=== PATIENT | male | born 1980 | race Caucasian/White ===

== ENCOUNTER 2017-12-26 09:48 | Emergency (ER) | payer SELFPAY ==
[2017-12-26] MEDS ORDERED: POVIDONE IODINE 10 % 15 ML UD TOP ONE (09:54)
[2017-12-26] MEDS ORDERED: LIDOCAINE 1% W/ EPINEPHRINE 20 ML VIAL INJ ONE (09:59)
[2017-12-26] MEDS ORDERED: LIDOCAINE 1% 10 ML VIAL INJ ONE (09:59)
--- NOTE | 2017-12-26 10:35 | ED.PDOC ---
History of Present Illness - General Chief Complaint: Trauma Stated Complaint: Degloving of fingers to R hand Time Seen by Provider: 12/26/17 10:13 Source: patient Exam Limitations: no limitations - History of Present Illness Initial Comments: Mauro Patricia 37 y/o male stated roping a horse and got tight both right 3rd-4th finger sustained skindegloving injury as well as distal avulsion injury 3rd digit right. Occurred: just prior to arrival Pain - Upper Extremity: moderate: Hand, right Method of Injury: other - see hpi Improving Factors: rest Worsening Factors: movement Associated Symptoms: PAIN INJURED FINGERS Allergies/Adverse Reactions: Allergies NO KNOWN ALLERGY Allergy (Verified 12/26/17 09:57) Home Medications: Ambulatory Orders Acetamin W/Cod #3 Tab [Tylenol w/CODEINE #3] 1 ea PO Q4HR PRN #14 tab 12/26/17 Cephalexin 1,000 mg PO BID #30 cap 12/26/17 Past Medical History (General) - Patient Medical History Hx Stroke: No Hx Congestive Heart Failure: No Hx Diabetes: No Surgical History: other - Vaccination History Hx Tetanus, Diphtheria Vaccination: - 12/26/17 Hx Influenza Vaccination: No Hx Pneumococcal Vaccination: No - Social History Hx Tobacco Use: No Hx Chewing Tobacco Use: Yes Hx Physical Abuse: No Hx Emotional Abuse: No Family Medical History - Family History Father Living Status: Still Living Hx Family Hypertension: Yes Physical Exam - Physical Exam General Appearance: Alert, Comfortable, No apparent distress Eyes, Ears, Nose, Throat Exam: normal ENT inspection Neck: supple Cardiovascular/Respiratory: regular rate, rhythm, normal peripheral pulses Abdominal Exam: non-tender, no organomegaly Shoulder Exam: normal inspection, non-tender, no evidence of injury Elbow/Forearm Exam: normal inspection, non-tender, no evidence of injury Wrist Exam: normal inspection, no evidence of injury Hand Exam: nail injury - with tuft avulsion distal phalanx 3rd digit and nail avulsion Progress - Progress Progress: 12/26/17 10:43 Vital Signs - 8 hr 12/26/17 09:48 Temperature 98.2 F Pulse Rate [ 88 Left Radial] Respiratory 16 Rate Blood Pressure 91/62 [Left Arm] - EKG/XRAY/CT XRAY: finger-avulsion Fx tuft-right Departure - Departure Clinical Impression: Avulsion fracture of middle phalanx of finger Qualifiers: Encounter type: initial encounter Fracture type: open Qualified Code(s): S62.629B - Displaced fracture of medial phalanx of unspecified finger, initial encounter for open fracture Avulsion of skin of finger Qualifiers: Encounter type: initial encounter Qualified Code(s): S61.209A - Unspecified open wound of unspecified finger without damage to nail, initial encounter Time of Disposition: 11:25 Disposition: Discharge to Home or Self Care Departure Forms: ED Discharge - Pt. Copy, Patient Portal Self Enrollment Instructions: DI for Traumatic Amputation Prescriptions: Acetamin W/Cod #3 Tab [Tylenol w/CODEINE #3] 1 ea PO Q4HR PRN #14 tab PRN Reason: Pain Cephalexin 1,000 mg PO BID #30 cap Home Medications: Ambulatory Orders Acetamin W/Cod #3 Tab [Tylenol w/CODEINE #3] 1 ea PO Q4HR PRN #14 tab 12/26/17 Cephalexin 1,000 mg PO BID #30 cap 12/26/17 Additional Instructions: KEEP APPOINTMENT WITH ORTHOPEDIST IN AM at [facility] 27 December 2017
--- NOTE | 2017-12-26 10:36 | RAD ---
Procedure: XR HAND 3 OR MORE VIEWS . Right Exam Date: 12/26/2017 9:58 AM CDT Ordering Provider: Dmitry Julien Clinical Indication: degloving of fingers Comparison: None Findings/impression: There is traumatic partial amputation involving the tuft of the third distal phalanx. Overlying soft tissues are also absent. No radiopaque foreign body. Otherwise, no acute fracture or focal osseous destruction is present. Electronically signed by: Delisa Hassan MD 12/26/2017 10:35 AM CDT
[2017-12-26] MEDS ORDERED: ceFAZolin SODIUM 1 GM VIAL IM ONE (10:37)
[2017-12-26] MEDS ORDERED: TETANUS,DIPHTHERIA,PERTUSSIS 1 EA SYG IM ONE (10:37)
[2017-12-26] MEDS ORDERED: MORPHINE SULFATE INJ 10 MG/ML VIAL IM ONE (10:37)
[2017-12-26] MEDS ORDERED: KETOROLAC TROMETHAMINE INJ 60 MG/2 ML VIAL IM ONE (10:43)
[2017-12-26] MEDS ORDERED: WATER FOR INJ 10 ML VIAL INJ ONE (10:50)
[2017-12-26 11:38] VITALS: BP 111/67; TEMP 98; O2SAT 99
== END 2017-12-26 11:35 | disposition home or self-care (01) ==
LOC: ER 09:48
DX: S61.302A Unspecified open wound of right middle finger with damage to nail, initial encounter (principal); S61.204A Unspecified open wound of right ring finger without damage to nail, initial encounter; S62.622A Displaced fracture of middle phalanx of right middle finger, initial encounter for closed fracture; Z23 Encounter for immunization; X58.XXXA Exposure to other specified factors, initial encounter; Y92.9 Unspecified place or not applicable
CPT/HCPCS: 73130; 90471; 90715; A4216; J0690; J1885